=== PATIENT | male | born 1945 | race Caucasian/White ===

== ENCOUNTER → 2018-04-25 | Outpatient (CLI) | payer MEDICARE ==
--- NOTE | 2018-04-25 09:37 | Diagnostic Imaging Report ---
EXAM: Complete Abdominal Ultrasound INDICATION: ^ABDOMINAL PAIN COMPARISON: None. TECHNIQUE: Transverse and longitudinal images of the upper abdomen were obtained. FINDINGS: Liver: Size: 13.5 cm in the right midclavicular line, normal Appearance: Normal echogenicity, smooth contour Mass: No focal masses Spleen: Size: 10.2 cm in length, normal Echogenicity: Normal Mass: No focal masses Gallbladder: Stones/Sludge: None Wall: 0.2 cm Appearance: No pericholecystic fluid or hydrops. Sonographic Mcclure's Sign: Negative Bile Ducts: Intrahepatic Ducts: No dilatation Extrahepatic Ducts: Common bile duct measures 0.2 cm, no dilatation Pancreas: Visualized pancreas is unremarkable. Right Kidney: Size: 10.6 cm Echogenicity: Normal Parenchymal thickness: Normal Collecting System: No hydronephrosis Stone: None Cyst/Mass: None Left Kidney: Size: 10.9 cm Echogenicity: Normal Parenchymal thickness: Normal Collecting System: No hydronephrosis Stone: None Cyst/Mass: None Vessels: Aorta: Visualized portions are normal Inferior Vena Cava: Visualized portions are normal Main Portal Vein: 1.6 cm, mildly dilated with hepatopetal flow. Free Fluid: No ascites or pleural effusion IMPRESSION: Mildly dilated portal vein could be due to mild portal hypertension. Otherwise, unremarkable abdominal ultrasound. Signed by: Dr. Jose Martin Perez MD on 04/25/2018 9:34 AM
--- NOTE | 2018-04-25 09:41 | Diagnostic Imaging Report ---
EXAM: Pelvic Ultrasound INDICATION: ^ABDOMINAL PAIN COMPARISON: None TECHNIQUE: Grayscale transverse and sagittal images were obtained of the pelvis. FINDINGS: See impression. IMPRESSION: Bladder is not fully distended, limiting evaluation. Prostate measures 3.1 x 3.3 x 4.6 cm (24.6 cc), not enlarged. Moderate calcified atherosclerotic plaque is seen within left iliac artery. No evidence of hernia in the bilateral inguinal regions. Signed by: Dr. Jose Martin Perez MD on 04/25/2018 9:38 AM
== END ==
LOC: US 08:05
PROVIDERS: ATTEND Family Medicine
DX: R10.84 Generalized abdominal pain (principal)
CPT/HCPCS: 76700; 76856